=== PATIENT | male | born 1945 | race Caucasian/White ===

== ENCOUNTER 2017-02-16 18:41 | Inpatient (IN) | payer OTHER, BC ==
[~2017-02-16] VITALS: Ht 170.2 cm; Wt 63.5 kg
--- NOTE | ~2017-02-16 | EKG ---
[address] [place] [address] ELECTROCARDIOGRAM REPORT Name: CORRINA SOTO Room #: 420-P ADM IN M.R.#: [id number] Admission: 02/16/17 Attend Phys: Carlie Salinas MD Discharge: Date of : 45 Report #: [id number] THIS REPORT FOR: //name// [facility] ED Test Date: 2017-02-16 Test Time: 19:05:14 Pat Name: CORRINA SOTO Department: Room: [facility] Gender: M [employer] Quality Control Technician: MYNOR : 1945 Requested By: Augustina Cotton Order Number: [id number] MD: Aris Amador Measurements Intervals [place] Rate: 86 P: DE: QRS: -65 QRSD: 114 T: 88 QT: 356 QTc: 426 Interpretive Statements Sinus rhythm with first-degree AV block Left anterior fascicular block Poor R wave progression Borderline repolarization abnormality Compared to ECG 06/13/2016 13:53:25 No significant change was found Electronically Signed On 02-17-2017 8:00:19 CDT by Aris Amador [email or web address] <ELECTRONICALLY SIGNED> By: Aris Amador MD, [facility] 02/17/17 0800 [id number] 1905 Aris Amador MD, [facility] /EPI
--- NOTE | ~2017-02-16 | HC ---
[facility] [place] [address] CONSULTATION Name: CORRINA SOTO Room #: 420-P ADM IN M.R.#: [id number] Admission: 02/16/17 Attend Phys: Carlie Salinas MD Discharge: Date of : 45 Report #: [id number] THIS REPORT FOR: //name// CC: Carlie Leon DATE OF SERVICE: 02/17/2017 REASON FOR CONSULTATION: Chronic kidney disease. HISTORY OF PRESENT ILLNESS: The patient is extremely well known to our service, has been seen multiple times at [facility], also at this hospital, and also in the office. He has progressive chronic kidney disease for the most part based on obstructive uropathy. Creatinine is worsening, but he has had worsening dementia and more recently the approach has changed to one of palliation. He has been in extended care facility with worsening mental status, frequent falls, is not really eating much of anything, now he fell, got sick, came to the hospital, was found to have a tear in his neobladder and elevated creatinine and potassium. PAST MEDICAL HISTORY: He had prostate cancer, cystectomy and prostatectomy performed, neobladder placed. He has chronic dementia, the CKD with creatinine running between 4 and 5 most recently. He has had carotid endarterectomy, pacemaker, sick sinus syndrome, COPD, sleep apnea, previously brain aneurysm, treated with a coil, and a history of hypertension. HOME MEDICATIONS: Include carvedilol, torsemide, and aspirin. SOCIAL HISTORY: No substantial cigarettes or alcohol, debilitated, confused, staying in an extended care facility. REVIEW OF SYSTEMS: Very difficult to take due to his deteriorated condition. GENERAL: He has been weak. He has been confused. EYES: Vision appears to be okay. ENT: His hearing is okay. He does not swallow much, but denies any mouth sores. ENDOCRINE: No diabetes or thyroid disease. RESPIRATORY: Not short winded at rest. CARDIAC: No chest pain noted. GASTROINTESTINAL: Poor appetite, not eating much. GENITOURINARY: Has had tear in his bladder as mentioned. PSYCHIATRIC: He has been confused. NEUROLOGIC: Diffuse weakness has been intermediate, sometimes he tries to get up and he falls and that has what led to this problem. PHYSICAL EXAMINATION: [facility] [address] [place] [address] CONSULTATION Name: CORRINA SOTO Room #: 420-P [facility] IN M.R.#: [id number] Admission: 02/16/17 Attend Phys: Carlie Salinas MD Discharge: Date of : 45 Report #: [id number] GENERAL: This is a chronically ill-appearing gentleman, poorly communicative. HEENT: Extraocular movements appear full. Vision grossly intact. Hearing grossly intact. Mucous membranes dry. NECK: Supple. CHEST: Shows diminished breath sounds. HEART: Distant. ABDOMEN: Soft. EXTREMITIES: Show no edema. LABORATORY DATA: Shows hemoglobin 8.9, white count 11.9, sodium 143, potassium 5.4, chloride 114, bicarbonate 16, BUN 62, creatinine 5.1. ASSESSMENT AND PLAN: 1. Progressive chronic kidney disease, he is not a dialysis candidate due to his deteriorating overall condition and mental status. It has been discussed at length with the family. We will be opting for hospice care. 2. Neobladder with tear, again conservative treatment . 3. Chronic and progressive dementia. 4. Previous prostate cancer. 5. History of carotid endarterectomy. 6. History of pacemaker. 7. Chronic obstructive pulmonary disease. 8. History of sleep apnea. <ELECTRONICALLY SIGNED> By: Farhan Leon MD 02/18/17 1115 [id number] Farhan Leon MD /nt
--- NOTE | ~2017-02-16 | HC ---
[facility] [place] [address] [place] [address] CONSULTATION Name: CORRINA SOTO Room #: 420-P [facility] IN M.R.#: [id number] Admission: 02/16/17 Attend Phys: Carlie Salinas MD Discharge: Date of : 45 Report #: [id number] THIS REPORT FOR: //name// CC: Carlie Leon DATE OF SERVICE: 02/17/2017 DATE OF CONSULTATION: 02/17/2017 ATTENDING PHYSICIAN: Carlie Salinas M.D. REASON FOR CONSULTATION: Abdominal pain. HISTORY OF PRESENT ILLNESS: This is a 71-year-old male patient who was transferred to [facility] from a [facility] facility on 02/16/2017. The patient has a history of cerebral aneurysms and is a very poor historian. The patient had fallen at the [facility] facility, hitting his head and thereafter, the patient developed hematuria. After his transfer to [facility], he underwent a CT of the head without contrast showing no acute intracranial abnormality, a soft tissue hematoma was present. CT of the abdomen and pelvis showed a possible small area of the urinary bladder wall disruption as well as perinephric stranding around the left kidney. In addition to this, cholelithiasis was identified. I have been asked to see the patient for further evaluation and treatment. Of note, Urology has been consulted as well. The patient does have a history significant for transitional cell carcinoma of the bladder. He underwent a cystoprostatectomy and neobladder with adjuvant radiation therapy in 2007 at the [facility]. PAST MEDICAL HISTORY: Significant for congestive heart failure (ejection fraction 30-35%), cerebral aneurysms, history of non-ST elevated myocardial infarction, coronary artery disease, COPD, hypertension, hyperlipidemia, rheumatoid arthritis, pacemaker placement, stage V chronic kidney disease and bladder cancer. PAST SURGICAL HISTORY: Cystoprostatectomy and neobladder formation in 2007. MEDICATIONS: Currently include Cefepime, prophylactic heparin, bupropion, aspirin, amlodipine, isosorbide dinitrate, hydralazine, hydroxychloroquine, sevelamer, Carvedilol breathing treatments and p.r.n. medications. ALLERGIES: No known drug allergies. FAMILY HISTORY: Reviewed and noncontributory to this hospitalization. [address] [address] CONSULTATION Name: CORRINA SOTO Room #: 420-P [facility] IN M.R.#: [id number] Admission: 02/16/17 Attend Phys: Carlie Salinas MD Discharge: Date of : 45 Report #: [id number] SOCIAL HISTORY: The patient denies use of tobacco, alcohol or illicit drugs. He was being evaluated for palliative care. REVIEW OF SYSTEMS: As per history of present illness. In addition, GENERAL: The patient denies unintentional weight loss. Denies fever or chills. HEENT: Denies changes in taste, vision, hearing, or smell. RESPIRATORY: Denies shortness of breath or asthma. CARDIOVASCULAR: Denies chest pain or palpitations. GASTROINTESTINAL: Reports abdominal pain, favoring the lower abdomen. GENITOURINARY: History of bladder cancer and recent hematuria. MUSCULOSKELETAL: Denies myalgia or arthralgia. NEUROLOGIC: Denies headaches, numbness or tingling. PSYCHIATRIC: Denies depression or suicidal ideations. SKIN/INTEGUMENTARY: Denies new skin lesions, rashes, or moles. ENDOCRINE: Denies polydipsia, polyuria, heat or cold intolerance. HEMATOLOGIC: Denies easy bleeding, bruising or anemia. PHYSICAL EXAMINATION: VITAL SIGNS: Temperature 98.8, blood pressure 126/53, pulse 80 and respirations 20. GENERAL: This is a 71-year-old demented male patient who is awake and alert, but oriented x 1. He is in no acute distress. HEENT: Normocephalic. Extraocular movements are intact. He has moist mucosal membranes. NECK: Supple, no appreciable lymphadenopathy. Trachea is midline. CHEST: Clear bilaterally. No crackles or wheezes. CARDIOVASCULAR: Regular rate and rhythm. ABDOMEN: Soft and nondistended. He has a palpable bulge in the abdomen above his umbilicus. A lower midline incision was seen that extends up to the area of bulging. There is no overlying erythema or edema. He has mild tenderness to palpation in the lower abdomen without rebound or guarding. GENITOURINARY: Normal external male genitalia with a Le catheter in place. RECTAL: Deferred. EXTREMITIES: No clubbing or cyanosis. NEUROLOGIC: Cranial nerves 2-12 grossly intact. PSYCHIATRIC: Normal affect. SKIN/INTEGUMENTARY: No acute inflammatory changes, rashes or lesions are present. LABORATORY DATA: CBC from this morning shows a white blood cell count of 9.0, hemoglobin 8.9, hematocrit 27.0 and platelets 244. Electrolytes showed a sodium of 143, potassium 5.4, chloride 114, CO2 16, BUN 62, creatinine 5.1 and glucose 80. Troponin I was less than 0.04 last night. His comprehensive metabolic profile showed no elevation of his liver function tests. [facility] [address] [place] [address] CONSULTATION Name: CORRINA SOTO Room #: 420-P [facility] IN M.R.#: [id number] Admission: 02/16/17 Attend Phys: Carlie Salinas MD Discharge: Date of : 45 Report #: [id number] RADIOLOGIC STUDIES: CT abdomen and pelvis findings are as noted above. In addition, a hernia was seen on the study, which was not reported. A CT of the head showed no acute findings. Chest x-ray showed no acute cardiopulmonary abnormality and CT of the L-spine without contrast showed no acute findings. IMPRESSION AND PLAN: This is a 71-year-old demented male patient with hematuria status post a fall at the [facility]. His CT scan showed fluid in the pelvis and a possible small area of wall disruption in the urinary bladder with perinephric stranding around the left kidney. 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 It is possible that he has disrupted his bladder given his previous surgical history; however, this could also be surgical changes that are not appreciated. Radiology has recommended further imaging with a cystogram. Urology has been consulted as well. I will defer management of the urinary bladder (if injury is present) to Urology. Would need to consider transferring the patient to the [facility] if surgical/urologic intervention is necessary; however, again, I will defer to Urology. After his bladder issues have been resolved, the patient may benefit from repair of his incisional ventral hernia. The decision to operate electively on this patient will depend upon the patient's family and their willingness to move forward with this in their family member they are considering for palliative care. He has no acute general surgery issues at this time unless he is felt to have a significant bladder injury. I sincerely appreciate the opportunity to participate in the care of this patient and will leave further recommendations and orders in the electronic medical record as appropriate. Thank you very much. <ELECTRONICALLY SIGNED> By: Kyle Rodriguez MD, FACS 02/18/17 0735 [id number] Kyle Rodriguez MD, FACS /nt
--- NOTE | ~2017-02-16 | H ---
[facility] [place] [address] [place] [address] HISTORY AND PHYSICAL Name: CORRINA SOTO Room #: 420-P [facility] IN M.R.#: [id number] Admission: 02/16/17 Attend Phys: Carlie Salinas MD Discharge: 02/18/17 Date of : 45 Report #: [id number] THIS REPORT FOR: //name// CC: Carlie Braggald Edward DATE OF SERVICE: 02/17/2017 HISTORY OF PRESENT ILLNESS: The patient is a 71-year-old male, who was transferred from retirement facility to [facility] for hyperkalemia and low grade temperature. The patient was also having some cough. I saw the patient about a couple of weeks ago, and he was very confused and admitted to us, to the retirement facility from [facility]. The patient has the diagnosis of chronic obstructive pulmonary disease. He was on oxygen. My understanding is that the patient's family were looking for palliative care or hospice care at that time. The patient had the diagnosis of chronic kidney disease stage 5. When I came to see the patient today, he was not complaining of anything, but he was obviously confused. PAST MEDICAL HISTORY: Significant for cerebral aneurysm times 2, congestive heart failure with an ejection fraction of 30-35%. The patient had non ST elevation myocardial infarction in March of 2016, coronary artery disease, stage V chronic kidney disease, chronic obstructive pulmonary disease, hyperlipidemia, hypertension, rheumatoid arthritis, bladder cancer, and neobladder formation. The patient had a history of cystectomy with neobladder formation, pacemaker placement, and brain stenting occurred 2 times. MEDICATIONS: The patient's medications from the retirement facility include amlodipine 5 mg daily, aspirin 81 mg daily, atorvastatin 10 mg daily, bupropion 75 mg 2 tablets daily, carvedilol 6.25 mg twice a day, hydroxychloroquine 200 mg daily, isosorbide dinitrate 10 mg twice a day, mirtazapine 7.5 mg daily, Spiriva 18 mcg inhalation daily, oxycodone 5 mg every 6 hours as needed, trazodone 50 mg at bedtime. ALLERGIES: No known drug allergies. SOCIAL HISTORY: The patient denies any recent smoking, alcohol use, or drug use. FAMILY HISTORY: Noncontributory. REVIEW OF SYSTEMS: The patient is alert. He is definitely having some abdominal pain, but otherwise he is peacefully confused. PHYSICAL EXAMINATION: VITAL SIGNS: On arrival to the hospital showed a temperature of 100.4, pulse of [facility] [address] [place] [address] HISTORY AND PHYSICAL Name: CORRINA SOTO Room #: 420-P DIS IN [facility]#: [id number] Admission: 02/16/17 Attend Phys: Carlie Salinas MD Discharge: 02/18/17 Date of : 45 Report #: [id number], respirations 16, blood pressure of 130/74. HEAD AND NECK: Unremarkable. NECK: Supple. LUNGS: Clear to auscultation with good air entry bilaterally. CARDIOVASCULAR: S1, S2, without any murmur or gallop. ABDOMEN: Showed tenderness mainly on the right upper quadrant and right lower quadrant area. EXTREMITIES: Without any edema. LABORATORY DATA: The patient's 12-lead EKG showed atrial fibrillation with left anterior fascicular block, anterior infarct that is old, borderline repolarization abnormalities. The patient's sodium was 136, potassium 6.4, chloride 111, bicarbonate 15, anion gap 10, BUN 60, creatinine 5, alkaline phosphatase was 106, calcium 8.1. ALT is 23, albumin 2.3. The patient's troponin less than 0.04. White count is 11.7, hemoglobin 10.3, hematocrit 31.2, platelet count 295. Neutrophils are 82% with 7% band. CT of the head without contrast showed no acute intracranial abnormalities. Chronic intracranial findings of tissue hematoma. CT of the abdomen and pelvis without contrast showed fluid in the pelvis and possible small area of wall disruption in the urinary bladder, given the history of injury and hematuria. Traumatic injury to the urinary bladder should be considered if clinically indicated. Post-contrast images with delayed sequence might provide additional information. Perinephric stranding around the left kidney. Cholelithiasis. Chest x-ray showed no acute cardiopulmonary abnormality. CT of the spine showed no acute abnormality besides spondylosis. Repeated basic metabolic panel showed sodium of 143, potassium of 5.4, chloride 114, bicarbonate 16, anion gap 13, BUN 62, creatinine 5.1, glucose of 80, calcium 7.6. ASSESSMENT AND PLAN: 1. Acute on chronic kidney failure. The patient's creatinine was fluctuating from 3.4 on 02/04/2017. 2. Hyperkalemia. 3. Abdominal pain with possible disconnection of the ureter. 4. Chronic obstructive pulmonary disease. 5. Obstructive sleep apnea with the use of CPAP machine. 6. Recent coronary artery disease with non-ST elevation myocardial infarction. PLAN: The patient was admitted to the hospital with the above-mentioned diagnoses. We are asking for Nephrology and Urology consult, and also I will ask for general surgical consult. I will continue with the IV hydration. [facility] [address] [facility] [place] [address] HISTORY AND PHYSICAL Name: CORRINA SOTO Room #: 420-P DIS IN .R.#: [id number] Admission: 02/16/17 Attend Phys: Carlie Salinas MD Discharge: 02/18/17 Date of : 45 Report #: [id number] patient's hyperkalemia has improved, and we will see if there is any other input from the nephrology. We will continue to monitor the patient. <ELECTRONICALLY SIGNED> By: Carlie Salinas MD 02/20/17 0649 [id number] Carlie Salinas MD /nt
[2017-02-16 18:41] VITALS: BP 150/74
[~2017-02-16 18:41] MED LIST: ASPIR 8181 MG PO; COREG6.25 MG PO; DEMADEX20 MG PO; HYDRALAZINE 10M10 MG PO; HYDROXYCHLOROQ200 M1 PO; ISORDIL10 MG PO; KEFLEX500 MG PO; LEVAQUIN 500 M500 M2 PO; LEVAQUIN 750 M750 MG PO; LIPITOR10 MG PO; MAXIPIME1 GM IVPB; NORCO 10-325 T1 EACH PO; NORVASC5 MG PO; OXYGEN MISCELL; RENVELA800 MG PO; SYMBICORT160 MCG/4. INH; VAN500AD IVPB; VENTOLIN HFA 1818 GM INH; WELLBUTRIN SR150 MG PO
[2017-02-16 19:07] LABS: HEMATOCRIT 31.2 % (42.0-52.0); HEMOGLOBIN 10.3 gm/dL (14.0-18.0); MCH 28.1 pg (26.0-34.0); MCHC 32.9 g/dL (28.0-37.0); MCV 85.4 fL (80.0-100.0); PLATELET COUNT 295 thou/uL (150-400); RBC 3.66 mil/uL (4.50-6.00); RDW 16.5 % (10.5-14.5); WBC 11.7 thou/uL (4.0-11.0)
[2017-02-16 19:08] LABS: MANUAL DIFF YES
[2017-02-16 19:29] LABS: ALBUMIN 2.3 g/dL (3.4-5.0); CALCIUM 8.1 mg/dL (8.5-10.1); TOTAL BILIRUBIN 0.5 mg/dL (<0.1-1.0); TOTAL PROTEIN 6.4 g/dL (6.4-8.2)
[2017-02-16 19:34] LABS: POTASSIUM 6.4 mmol/L (3.5-5.1)
[2017-02-16 19:40] LABS: ABSOLUTE NEUTROPHILS 10.4 thou/uL (1.4-8.2); ANISOCYTOSIS 1+; TOTAL CELL COUNT 100
[2017-02-16] MEDS ORDERED: TRAZODONE HCL50 MG PO (20:28)
[2017-02-16 21:46] VITALS: BP 116/59
[2017-02-16 22:18] VITALS: BP 105/53
[2017-02-17 04:10] VITALS: BP 149/71
[2017-02-17 04:11] VITALS: BP 137/77
[2017-02-17 06:22] LABS: CALCIUM 7.6 mg/dL (8.5-10.1); CREATININE 5.1 mg/dL (0.7-1.3)
[2017-02-17 06:24] LABS: POTASSIUM 5.4 mmol/L (3.5-5.1)
[2017-02-17 07:14] VITALS: BP 126/53
[2017-02-17 10:24] LABS: HEMOGLOBIN 8.9 gm/dL (14.0-18.0); MCH 28.3 pg (26.0-34.0); MCHC 33.2 g/dL (28.0-37.0); MCV 85.2 fL (80.0-100.0); RBC 3.16 mil/uL (4.50-6.00); RDW 16.6 % (10.5-14.5)
[2017-02-17 15:31] VITALS: BP 125/47
[2017-02-17 17:18] LABS: HEMATOCRIT 25.1 % (42.0-52.0); HEMOGLOBIN 8.2 gm/dL (14.0-18.0); MCH 27.6 pg (26.0-34.0); MCHC 32.4 g/dL (28.0-37.0); MCV 85.2 fL (80.0-100.0); RBC 2.95 mil/uL (4.50-6.00); RDW 16.2 % (10.5-14.5); WBC 7.9 thou/uL (4.0-11.0)
[2017-02-17 20:03] VITALS: BP 144/51
[2017-02-18] VITALS (7 sets, daily range): BP systolic 123–142; BP diastolic 54–63
[2017-02-18 06:23] LABS: ABSOLUTE NEUTROPHILS 4.1 thou/uL (1.4-8.2); BASOPHILS 0.8 % (0.0-2.0); EOSINOPHILS 10.1 % (0.0-3.0); HEMATOCRIT 25.1 % (42.0-52.0); HEMOGLOBIN 8.3 gm/dL (14.0-18.0); LYMPHOCYTES 12.7 % (24.0-44.0); MANUAL DIFF NO; MCV 84.8 fL (80.0-100.0); MONOCYTES 6.7 % (1.0-8.0); PLATELET COUNT 223 thou/uL (150-400); POLYS 69.7 % (36.0-66.0); RBC 2.95 mil/uL (4.50-6.00); RDW 16.3 % (10.5-14.5); WBC 5.9 thou/uL (4.0-11.0)
[2017-02-18 06:31] LABS: CALCIUM 7.9 mg/dL (8.5-10.1); CREATININE 4.5 mg/dL (0.7-1.3)
[2017-02-18 06:37] LABS: POTASSIUM 4.4 mmol/L (3.5-5.1)
== END 2017-02-18 15:46 | disposition hospice, home (50) | DRG 698 ==
LOC: ER 18:41 → EROBS 21:39 → 4E 21:39
PROVIDERS: Emergency Medicine; Internal Medicine; Physician Assistant
PROC: BT101ZZ Fluoroscopy of Bladder using Low Osmolar Contrast (ICD-10-PCS; principal; 2017-02-17)
DX: N32.89 Other specified disorders of bladder (principal); G93.41 Metabolic encephalopathy; E43 Unspecified severe protein-calorie malnutrition; N17.9 Acute kidney failure, unspecified; I13.2 Hypertensive heart and chronic kidney disease with heart failure and with stage 5 chronic kidney disease, or end stage renal disease; N18.5 Chronic kidney disease, stage 5; I50.9 Heart failure, unspecified; J44.9 Chronic obstructive pulmonary disease, unspecified; E87.5 Hyperkalemia; F03.90 Unspecified dementia, unspecified severity, without behavioral disturbance, psychotic disturbance, mood disturbance, and anxiety; I67.1 Cerebral aneurysm, nonruptured; I25.10 Atherosclerotic heart disease of native coronary artery without angina pectoris; E78.5 Hyperlipidemia, unspecified; M06.9 Rheumatoid arthritis, unspecified; G47.33 Obstructive sleep apnea (adult) (pediatric); I49.5 Sick sinus syndrome; K80.20 Calculus of gallbladder without cholecystitis without obstruction; K46.9 Unspecified abdominal hernia without obstruction or gangrene; Z95.0 Presence of cardiac pacemaker; Z87.01 Personal history of pneumonia (recurrent); Z85.46 Personal history of malignant neoplasm of prostate; Z95.820 Peripheral vascular angioplasty status with implants and grafts; Z79.899 Other long term (current) drug therapy; Z79.82 Long term (current) use of aspirin; Z82.49 Family history of ischemic heart disease and other diseases of the circulatory system; Z85.51 Personal history of malignant neoplasm of bladder
CPT/HCPCS: 10183